=== PATIENT | female | born 1980 | race Caucasian/White ===

== ENCOUNTER 2018-03-07 12:22 | Emergency (ER) | payer OTHER ==
[2018-03-07] MEDS ORDERED: SODIUM CHLORIDE 0.9% 1,000 ML IV STA ×2 (14:09→15:48)
--- NOTE | 2018-03-07 14:13 | ED ---
General Adult HPI - General Source: patient, RN notes reviewed, old records reviewed Mode of arrival: ambulatory Limitations: no limitations <Yuval Hammond - Last Filed: 03/07/18 18:05> <Dat Puri - Last Filed: 03/07/18 20:38> - General Chief complaint: ENT Stated complaint: infection in mouth/throat - History of Present Illness Initial comments: 37-year-old female patient with past medical history of poor dentition presents to ED with dental pain, jaw pain, dysphagia for approximately one week. Patient believes that approximately one week ago she developed a tooth infection at approximately her 29th tooth. Patient states that it felt similar to infections she had in the past. Patient then began to develop pain in her right mandible. After 2 days patient has had decreased ability to open jaw secondary to pain, difficulty swallowing, patient has developed edema under the right angle of her mandible. Patient had one day of diarrhea, nausea/vomiting yesterday. Patient denies any fevers at home. Patient denies chest pain, shortness of breath, abdominal pain, dysuria. Patient states that she is fully vaccinated. Systemic: Pt denies fatigue, myalgia, fever/chills, rash. Pt denies weakness, night sweats, weight loss. Neuro: Pt denies headache, visual disturbances, syncope or pre-syncope. HEENT: Pt denies ocular discharge or irritation, otalgia, rhinorrhea. Cardiopulmonary: Pt denies chest pain, SOB, heart palpitations, dyspnea on exertion. Abdominal/GI: Pt denies abdominal pain. : Pt denies dysuria, burning w/ urination, frequency/urgency. Denies new onset urinary or bowel incontinence. MSK: Pt denies myalgia, loss of strength or function in extremities. Neuro: Pt denies new onset weakness, paresthesias. (Yuval Hammond) - Related Data Allergies Allergy/AdvReac Type Severity Reaction Status Date / Time Penicillins Allergy Unknown Verified 03/07/18 13:09 Review of Systems ROS Other: All systems not noted in ROS Statement are negative. <Yuval Hammond - Last Filed: 03/07/18 18:05> ROS Other: All systems not noted in ROS Statement are negative. <Dat Puri - Last Filed: 03/07/18 20:38> ROS Statement: Those systems with pertinent positive or pertinent negative responses have been documented in the HPI. Past Medical History Past Medical History: No Reported History History of Any Multi-Drug Resistant Organisms: None Reported Past Surgical History: No Surgical Hx Reported Past Psychological History: Anxiety, Bipolar Smoking Status: Current every day smoker Past Alcohol Use History: None Reported Past Drug Use History: None Reported <Yuval Hammond - Last Filed: 03/07/18 18:05> General Exam Limitations: no limitations <Yuval Hammond - Last Filed: 03/07/18 18:05> - General Exam Comments Initial Comments: Constitutional: NAD, AOX3, Pt has pleasant affect. HEENT: NC/AT, trachea midline, no lymphadenopathy. Posterior pharynx non erythematous, without exudates. Mild trismus noted. Edema noted on ankle or R mandible. Non erythematous, non fluctuant. External ears appear normal, without discharge. Mucous membranes moist. Eyes PERRLA, EOM intact. There is no scleral icterus. No pallor noted. Cardiopulmonary: RRR, no murmurs, rubs or gallops, no JVD noted. Lungs CTAB in anterior and posterior west. No peripheral edema. Abdominal exam: Abdomen soft and non-distended. Abdomen non-tender to palpation in all 4 quadrants. Bowel sounds active in LLQ. No hepatosplenomegaly. No ecchymosis Neuro: CN II-XII intact. No nuchal rigidity. MSK: No posterior calf tenderness bilaterally, homans sign negative bilaterally. Posterior tibialis and radial pulse +2 bilaterally. Sensation intact in upper and lower extremities. Full active ROM in upper and lower extremities, 5/5 stregnth. (Yuval Hammond) Vital Signs 03/07/18 03/07/18 03/07/18 13:09 16:10 18:26 Temperature 98.6 F 100.8 F H 100.9 F H Pulse Rate 111 H 85 94 Respiratory 18 16 16 Rate Blood Pressure 131/83 129/76 134/72 O2 Sat by Pulse 95 98 94 L Oximetry Medical Decision Making - Lab Data Result diagrams: 03/07/18 14:30 03/07/18 14:30 <Yuval Hammond - Last Filed: 03/07/18 18:05> - Lab Data Result diagrams: 03/07/18 14:30 03/07/18 14:30 <Dat Puri - Last Filed: 03/07/18 20:38> - Medical Decision Making 37-year-old female patient with past medical history of poor dentition presents to ED with dental pain, jaw pain, dysphagia for approximately one week. Patient believes that approximately one week ago she developed a tooth infection at approximately her 29th tooth. Patient states that it felt similar to infections she had in the past. Patient then began to develop pain in her right mandible. After 2 days patient has had decreased ability to open jaw secondary to pain, difficulty swallowing, patient has developed edema under the right angle of her mandible. Physical exam displayed Posterior pharynx non erythematous, without exudates. Mild trismus noted. Edema noted on ankle or R mandible. Non erythematous, non fluctuant. Patient vital signs displayed mild fever at 100.8. Patient vital signs otherwise stable. Patient to be treated with Tylenol. Laboratory investigations revealed a leukocytosis of 21.4. CMP non-impressive. Urine noncompressive. HCG negative. Group A strep negative. Cervical spinal film revealed no acute osseous abnormality seen. Prominent swelling of the prehyoid and floor of the mouth soft tissues. CT of soft tissue neck with contrast revealed periapical right mandibular abscess with associated soft tissue abscess. Oral surgery was consulted. Per recommendations from Dr. Mehta DDS Patient was given 600 mg clindamycin and 10 mg Decadron. Patient also given 2 L of fluid. Patient to follow-up with Dr. Mehta tomorrow morning at 6am. Patient agreeable to plan. Patient given strict return precautions. Patient to return to ED if any symptoms develop or if condition worsens in any way. Patient to follow-up PCP in 1-2 days after visit with oral surgeon. Case discussed and pt evaluated by Dr. Gao. (Yuval Hammond) 37-year-old female presenting with concern for dental infection, patient has soft tissue swelling right mandible, shows some induration of November. Patient's. Laboratory studies and CT is performed. Laboratory studies do reveal elevated white blood cell count 21, CT soft tissue shows periapical abscess, with fluid collection and adjacent soft tissue swelling. This is discussed with neurosurgery on-call, Dr. Mehta, recommends Decadron in addition to clindamycin patient had been initiated on. He will see the patient tomorrow at 745 which is 12 hours from time of discharge. Patient will be presented with worsening or changing symptoms. (Dat Puri) - Lab Data Lab Results 03/07/18 03/07/18 03/07/18 Range/Units 14:30 14:30 14:30 WBC 21.4 H (3.8-10.6) k/uL RBC 4.91 (3.80-5.40) m/uL Hgb 13.7 (11.4-16.0) gm/dL Hct 42.5 (34.0-46.0) % MCV 86.6 (80.0-100.0) fL MCH 27.9 (25.0-35.0) pg MCHC 32.2 (31.0-37.0) g/dL RDW 16.1 H (11.5-15.5) % Plt Count 466 H (150-450) k/uL Neutrophils % 81 % Lymphocytes % 10 % Monocytes % 6 % Eosinophils % 0 % Basophils % 0 % Neutrophils # 17.3 H (1.3-7.7) k/uL Lymphocytes # 2.2 (1.0-4.8) k/uL Monocytes # 1.3 H (0-1.0) k/uL Eosinophils # 0.1 (0-0.7) k/uL Basophils # 0.0 (0-0.2) k/uL Anisocytosis Slight Sodium 141 (137-145) mmol/L Potassium 3.8 (3.5-5.1) mmol/L Chloride 104 (98-107) mmol/L Carbon Dioxide 23 (22-30) mmol/L Anion Gap 14 mmol/L BUN 12 (7-17) mg/dL Creatinine 0.63 (0.52-1.04) mg/dL Est GFR (CKD-EPI)AfAm >90 (>60 ml/min/1.73 sqM) Est GFR (CKD-EPI)NonAf >90 (>60 ml/min/1.73 sqM) Glucose 127 H (74-99) mg/dL Plasma Lactic Acid Teofilo 1.8 (0.7-2.0) mmol/L Calcium 10.1 (8.4-10.2) mg/dL Total Bilirubin 0.8 (0.2-1.3) mg/dL AST 20 (14-36) U/L ALT 23 (9-52) U/L Alkaline Phosphatase 92 (38-126) U/L Total Protein 8.9 H (6.3-8.2) g/dL Albumin 4.9 (3.5-5.0) g/dL Urine Color Urine Appearance (Clear) Urine pH (5.0-8.0) Ur Specific Jeff (1.001-1.035) Urine Protein (Negative) Urine Glucose (UA) (Negative) Urine Ketones (Negative) Urine Blood (Negative) Urine Nitrite (Negative) Urine Bilirubin (Negative) Urine Urobilinogen (<2.0) mg/dL Ur Leukocyte Esterase (Negative) Urine RBC (0-5) /hpf Urine WBC (0-5) /hpf Ur Squamous Epith Cells (0-4) /hpf Urine Mucus (None) /hpf Urine HCG, Qual (Not Detectd) Group A Strep Rapid (Negative) 03/07/18 03/07/18 03/07/18 Range/Units 14:30 14:30 14:30 WBC (3.8-10.6) k/uL RBC (3.80-5.40) m/uL Hgb (11.4-16.0) gm/dL Hct (34.0-46.0) % MCV (80.0-100.0) fL MCH (25.0-35.0) pg MCHC (31.0-37.0) g/dL RDW (11.5-15.5) % Plt Count (150-450) k/uL Neutrophils % % Lymphocytes % % Monocytes % % Eosinophils % % Basophils % % Neutrophils # (1.3-7.7) k/uL Lymphocytes # (1.0-4.8) k/uL Monocytes # (0-1.0) k/uL Eosinophils # (0-0.7) k/uL Basophils # (0-0.2) k/uL Anisocytosis Sodium (137-145) mmol/L Potassium (3.5-5.1) mmol/L Chloride (98-107) mmol/L Carbon Dioxide (22-30) mmol/L Anion Gap mmol/L BUN (7-17) mg/dL Creatinine (0.52-1.04) mg/dL Est GFR (CKD-EPI)AfAm (>60 ml/min/1.73 sqM) Est GFR (CKD-EPI)NonAf (>60 ml/min/1.73 sqM) Glucose (74-99) mg/dL Plasma Lactic Acid Teofilo (0.7-2.0) mmol/L Calcium (8.4-10.2) mg/dL Total Bilirubin (0.2-1.3) mg/dL AST (14-36) U/L ALT (9-52) U/L Alkaline Phosphatase (38-126) U/L Total Protein (6.3-8.2) g/dL Albumin (3.5-5.0) g/dL Urine Color Yellow Urine Appearance Cloudy H (Clear) Urine pH 6.0 (5.0-8.0) Ur Specific Jeff 1.025 (1.001-1.035) Urine Protein 2+ H (Negative) Urine Glucose (UA) Trace H (Negative) Urine Ketones 2+ H (Negative) Urine Blood Small H (Negative) Urine Nitrite Negative (Negative) Urine Bilirubin Negative (Negative) Urine Urobilinogen 2.0 (<2.0) mg/dL Ur Leukocyte Esterase Negative (Negative) Urine RBC 8 H (0-5) /hpf Urine WBC 5 (0-5) /hpf Ur Squamous Epith Cells 12 H (0-4) /hpf Urine Mucus Many H (None) /hpf Urine HCG, Qual Not Detected (Not Detectd) Group A Strep Rapid Negative (Negative) Disposition Is patient prescribed a controlled substance at d/c from ED?: No Time of Disposition: 18:12 <Yuval Hammond - Last Filed: 03/07/18 18:05> <Dat Puri - Last Filed: 03/07/18 20:38> Clinical Impression: Mandibular abscess Disposition: HOME SELF-CARE Condition: Good Instructions: Abscess (ED) Additional Instructions: Patient to adhere to previously discussed treatment plan and will take medication(s) as directed. Patient to follow up with PCP in 1-2 days. Patient to return to ED if symptoms do not improve. Referrals: None,Stated [Primary Care Provider] - 1-2 days Issac Mehta DDS [STAFF PHYSICIAN] - 1-2 days
[2018-03-07 14:53] LABS: Appearance,Urine Cloudy (Clear); Bilirubin,Urine Negative (Negative); Blood,Urine Small (Negative); Color,Urine Yellow; Glucose,Urine (UA) Trace (Negative); Ketones,Urine 2+ (Negative); Leukocyte Esterase,Urine Negative (Negative); Mucus,Urine Many /hpf; Nitrite,Urine Negative (Negative); Protein,Urine 2+ (Negative); RBC,Urine 8 /hpf (0-5); Specific Gravity,Urine 1.025 (1.001-1.035); Squamous Epithelial Cell,Urine 12 /hpf (0-4)
[2018-03-07 14:54] LABS: Anisocytosis Slight; Basophils % (A) 0 %; Eosinophils # (A) 0.1 k/uL (0-0.7); Eosinophils % (A) 0 %; HCT 42.5 % (34.0-46.0); HGB 13.7 gm/dL (11.4-16.0); Lymphocytes # (A) 2.2 k/uL (1.0-4.8); Lymphocytes % (A) 10 %; MCH 27.9 pg (25.0-35.0); MCHC 32.2 g/dL (31.0-37.0); MCV 86.6 fL (80.0-100.0); Mean Platelet Volume 6.8; Monocytes # (A) 1.3 k/uL (0-1.0); Monocytes % (A) 6 %; Neutrophils # (A) 17.3 k/uL (1.3-7.7); Neutrophils % (A) 81 %; Platelet Count 466 k/uL (150-450); RBC 4.91 m/uL (3.80-5.40); RDW 16.1 % (11.5-15.5); WBC 21.4 k/uL (3.8-10.6)
[2018-03-07 14:58] LABS: ALT 23 U/L (9-52); AST 20 U/L (14-36); Albumin 4.9 g/dL (3.5-5.0); Alkaline Phosphatase 92 U/L (38-126); Anion Gap 14 mmol/L; Blood Urea Nitrogen 12 mg/dL (7-17); Calcium 10.1 mg/dL (8.4-10.2); Carbon Dioxide 23 mmol/L (22-30); Chloride 104 mmol/L (98-107); Glucose 127 mg/dL (74-99); Potassium 3.8 mmol/L (3.5-5.1); Sodium 141 mmol/L (137-145); Total Bilirubin 0.8 mg/dL (0.2-1.3); Total Protein 8.9 g/dL (6.3-8.2)
--- NOTE | 2018-03-07 15:00 | XR ---
EXAMINATION TYPE: XR cervical spine comp DATE OF EXAM: 03/07/2018 COMPARISON: None HISTORY: 37-year-old female with abscess for 1 week, dysphasia TECHNIQUE: 5 views FINDINGS: No prevertebral soft tissue swelling. Epiglottis is normal thickness. No effacement of the nasal or o ropharyngeal airway. Normal short drain of the subglottic airway. Prominent soft tissue swelling alnette g the prehyoid and floor of the mouth soft tissues. Normal odontoid view. Oblique views limited for a ssessment of the mid to lower neural foramen on both sides. Alignment is maintained. Minimal endplate spondylosis mid to lower cervical spine. Cervicothoracic junction is obscured by the patient's shoul ders and not assessed. IMPRESSION: Cervicothoracic junction obscured by the patient's shoulders and not assessed. Remaining alignment is maintained. No acute osseous abnormality seen of the cervical spine. Prominent swelling of the prehy oid and floor of the mouth soft tissues.
--- NOTE | 2018-03-07 15:20 | CT ---
EXAMINATION TYPE: CT soft tissue neck w con DATE OF EXAM: 03/07/2018 3:03 PM COMPARISON: HISTORY: Right sided neck pain and swelling for [address] DLP: 573.2 mGycm Automated exposure control for dose reduction was used. CONTRAST: CT scan of the neck is performed following with IV Contrast, patient injected with 100 mL of Isovue 3 00. Axial images are obtained, coronal and sagittal reformatted images are reviewed. FINDINGS: There are calcified right hilar nodes present. Orbits are symmetric. Airway: No gross abnormality seen. Parotid/submandibular glands: No gross abnormality seen. Carotid/Vascular Structures: Patent, left vertebral artery is dominant Osseous Structures: There is a low dense focus with small air focus measuring approximately 17 mm in greatest dimension adjacent to the inner aspect of the right mandible at the level of the abnormal sundar cency at the second of posterior molar compatible with periapical abscess with associated soft tissue abscess, there is associated possible phlegmon, abnormal soft tissue thickening in the submandibular location. There are associated inflammatory changes surrounding soft tissues submandibular location on the right. Some local minnie enlargement is also present. 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 Inflammatory change present in the bilateral ethmoi d air cells, left maxillary sinus. Other: Thyroid gland mildly heterogeneous on the right IMPRESSION: Periapical right mandibular abscess with associated soft tissue abscess, consult oral alcantara rgery. Additional findings above.
[2018-03-07] MEDS ORDERED: CLINDAMYCIN 600 MG in DEXTROSE 5% IN WATER 50 ML IVPB STA ×2 (15:47)
[2018-03-07 16:14] VITALS: RESP 16
[2018-03-07] MEDS ORDERED: DEXAMETHASONE SOD PHOSPHATE 10 MG/ML 1 ML VIAL IV STA (16:16)
[2018-03-07] MEDS ORDERED: ACETAMINOPHEN TAB 325 MG TAB PO STA (18:12)
[2018-03-07 18:28] VITALS: BP 134/72; PULSE 94; TEMP 100.9
== END 2018-03-07 18:31 | disposition home or self-care (01) ==
LOC: EC 12:22
DX: M27.2 Inflammatory conditions of jaws (principal); K04.7 Periapical abscess without sinus; D72.829 Elevated white blood cell count, unspecified; F17.200 Nicotine dependence, unspecified, uncomplicated; Z88.0 Allergy status to penicillin
CPT/HCPCS: 36415; 80053; 83605; 85025; 81001; 81025; 87081; 87430; 72050; 70491; 99284; 96365; 96375; 96361; J1100